=== PATIENT | female | born 1990 | race Caucasian/White ===

== ENCOUNTER 2020-07-03 15:14 | Inpatient (IN) | payer BC ==
[~2020-07-03] VITALS: Ht 162.6 cm; Wt 102.7 kg
[2020-07-03] MEDS ORDERED: MAGNESIUM SULF. PMX 20GM/500ML 500 ML IV ONE ×2 (16:05→23:16)
[2020-07-03] MEDS: LACTATED RINGERS 1,000 ML IV SCH (16:29)
[2020-07-03] MEDS ORDERED: PLEASE ENTER ALLERGIES MC SCH (16:30)
[2020-07-03] MEDS ORDERED: BETAMETHASONE 6 MG/ML, 5ML IM ONE (16:30)
[2020-07-03] MEDS ORDERED: MAGNESIUM SULF. PMX 20GM/500ML 500 ML IV SCH (16:30)
[2020-07-03] MEDS ORDERED: ACETAMINOPHEN 325 MG TABLET ONE ×2 (17:14→23:06)
[2020-07-03] MEDS: ACETAMINOPHEN 325 MG TABLET PO PRN ×2 (17:21→23:14)
[2020-07-03] MEDS ORDERED: FLUO20CA19 PO (18:25)
[2020-07-03 19:07] LABS: MICROSCOPIC INDICATED
[2020-07-03 19:40] LABS: BASOPHILS % (AUTO) 0 % (0-1); EOSINOPHILS % (AUTO) 0 % (1-7); LYMPHOCYTES % (AUTO) 9 % (22-44); MEAN CORPUSCULAR HEMOGLOBIN 30.7 pg (27.0-34.8); MEAN CORPUSCULAR HGB CONC 32.9 g/dL (32.4-35.8); MEAN PLATELET VOLUME 7.9 fL (7.4-10.4); MONOCYTES % (AUTO) 1 % (2-9); NEUTROPHILS % (AUTO) 90 % (42-75); PLATELET COUNT 324 x10^3/uL (130-400); RED BLOOD COUNT 3.68 x10^6/uL (3.82-5.3); RED CELL DISTRIBUTION WIDTH 13.6 % (9.6-15.2)
[2020-07-03 19:41] LABS: MD NO
[2020-07-03 19:53] LABS: ALANINE AMINOTRANSFERASE 15 U/L (12-78); ALBUMIN 2.7 g/dL (3.4-5.0); ANION GAP 10 mmol/L (5-15); CALCIUM 7.7 mg/dL (8.5-10.1); CHLORIDE 108 mmol/L (98-107); CREATININE 0.79 mg/dL (0.55-1.02)
[2020-07-03 19:55] LABS: ALKALINE PHOSPHATASE 70 U/L (45-117); BILIRUBIN,TOTAL 0.2 mg/dL (0.2-1.0); TOTAL PROTEIN 6.9 g/dL (6.4-8.2)
[2020-07-03] MEDS: MAGNESIUM SULF. PMX 20GM/500ML 500 ML IV SCH ×2 (20:35→23:21)
[2020-07-03 22:01] VITALS: BP 101/55
[2020-07-03] MEDS ORDERED: DOCUSATE 100 MG CAPSULE ONE (23:16)
[2020-07-03] MEDS: DOCUSATE 100 MG CAPSULE PO SCH (23:17)
[2020-07-03 23:30] VITALS: BP 99/53
[2020-07-04] MEDS ORDERED: ACETAMINOPHEN 325 MG TABLET ONE ×3 (05:08→19:17)
[2020-07-04] MEDS: ACETAMINOPHEN 325 MG TABLET PO PRN ×3 (05:12→19:22)
[2020-07-04] MEDS: LACTATED RINGERS 1,000 ML IV SCH ×2 (05:50→19:23)
[2020-07-04] MEDS ORDERED: MAGNESIUM SULF. PMX 20GM/500ML 500 ML IV ONE ×3 (06:00→21:13)
[2020-07-04] MEDS ORDERED: ONDANSETRON 2MG/ML, 2ML ONE ×3 (06:09→21:13)
[2020-07-04] MEDS: ONDANSETRON 2MG/ML, 2ML IVPush PRN ×3 (06:12→21:15)
[2020-07-04] MEDS: MAGNESIUM SULF. PMX 20GM/500ML 500 ML IV SCH ×2 (06:18→15:04)
[2020-07-04] MEDS ORDERED: PRENATAL VIT/IRON/FA 1 EACH TABLET ONE (08:31)
[2020-07-04] MEDS ORDERED: DOCUSATE 100 MG CAPSULE ONE ×2 (08:31→19:17)
[2020-07-04] MEDS: PRENATAL VIT/IRON/FA 1 EACH TABLET PO SCH (09:00)
[2020-07-04] MEDS: FLUOXETINE HCL 20 MG CAPSULE PO SCH (09:00)
[2020-07-04] MEDS: DOCUSATE 100 MG CAPSULE PO SCH ×2 (09:09→19:22)
[2020-07-04] MEDS ORDERED: BETAMETHASONE 6 MG/ML, 5ML IM ONE ×2 (13:31→14:00)
[2020-07-04 19:32] VITALS: BP 99/54
[2020-07-04] MEDS ORDERED: MAGNESIUM SULF. PMX 20GM/500ML 500 ML IV SCH (20:35)
[2020-07-05 00:05] VITALS: BP 97/54
[2020-07-05 07:30] VITALS: BP 96/53
[2020-07-05] MEDS ORDERED: ONDANSETRON 2MG/ML, 2ML ONE (08:15)
[2020-07-05] MEDS ORDERED: ACETAMINOPHEN 325 MG TABLET ONE ×2 (08:15→20:04)
[2020-07-05] MEDS: ONDANSETRON 2MG/ML, 2ML IVPush PRN (08:18)
[2020-07-05] MEDS: ACETAMINOPHEN 325 MG TABLET PO PRN ×2 (08:18→20:11)
[2020-07-05] MEDS ORDERED: DOCUSATE 100 MG CAPSULE ONE ×2 (09:18→20:06)
[2020-07-05] MEDS ORDERED: PRENATAL VIT/IRON/FA 1 EACH TABLET ONE (09:18)
[2020-07-05] MEDS: LACTATED RINGERS 1,000 ML IV SCH (09:20)
[2020-07-05] MEDS: FLUOXETINE HCL 20 MG CAPSULE PO SCH (10:51)
[2020-07-05] MEDS: PRENATAL VIT/IRON/FA 1 EACH TABLET PO SCH (10:51)
[2020-07-05] MEDS: DOCUSATE 100 MG CAPSULE PO SCH ×2 (10:51→20:10)
[2020-07-06] MEDS ORDERED: PRENATAL VIT/IRON/FA 1 EACH TABLET ONE (07:39)
[2020-07-06] MEDS ORDERED: ACETAMINOPHEN 325 MG TABLET ONE ×2 (07:39→12:09)
[2020-07-06] MEDS ORDERED: DOCUSATE 100 MG CAPSULE ONE (07:39)
[2020-07-06] MEDS: FLUOXETINE HCL 20 MG CAPSULE PO SCH (07:43)
[2020-07-06] MEDS: ACETAMINOPHEN 325 MG TABLET PO PRN ×2 (07:43→13:18)
[2020-07-06] MEDS: DOCUSATE 100 MG CAPSULE PO SCH (07:43)
[2020-07-06] MEDS: PRENATAL VIT/IRON/FA 1 EACH TABLET PO SCH (07:43)
[2020-07-06 08:13] VITALS: BP 98/47
[2020-07-06] MEDS ORDERED: ACETAMINOPHEN 500 MG TABLET ONE (20:07)
[2020-07-06] MEDS ORDERED: ACETAMINOPHEN 500 MG TABLET PO ONE (20:30)
[2020-07-07] MEDS ORDERED: ACETAMINOPHEN 500 MG TABLET PO ONE (06:30)
[2020-07-07] MEDS ORDERED: ACETAMINOPHEN 500 MG TABLET ONE (06:32)
[2020-07-07] MEDS: FLUOXETINE HCL 20 MG CAPSULE PO SCH (08:16)
[2020-07-07] MEDS: PRENATAL VIT/IRON/FA 1 EACH TABLET PO SCH (08:16)
[2020-07-07] MEDS ORDERED: PRENATAL VIT/IRON/FA 1 EACH TABLET ONE (08:20)
== END 2020-07-07 12:40 | disposition home or self-care (01) | DRG 832 ==
LOC: LDIP 15:48
PROVIDERS: ADMIT Obstetrics & Gynecology Maternal & Fetal Medicine; ATTEND Obstetrics & Gynecology Maternal & Fetal Medicine
DX: O35.8XX0 Maternal care for other (suspected) fetal abnormality and damage, not applicable or unspecified (principal); O44.02 Complete placenta previa NOS or without hemorrhage, second trimester; Q21.0 Ventricular septal defect; Z20.828 Contact with and (suspected) exposure to other viral communicable diseases; Z3A.25 25 weeks gestation of pregnancy; Z88.8 Allergy status to other drugs, medicaments and biological substances; Z88.1 Allergy status to other antibiotic agents; Z91.041 Radiographic dye allergy status
CPT/HCPCS: 36415; 80053; 81001; 83735; 85025; 85384; 86850; 86900; 87635; G0378; J0702; J2405; J3475; J7120

== ENCOUNTER 2020-07-22 17:03 | Inpatient (IN) | payer BC ==
[~2020-07-22] VITALS: Ht 162.6 cm; Wt 104.0 kg
[~2020-07-22 17:03] MED LIST: FLUO20CA19 PO
[2020-07-22] MEDS ORDERED: MAGNESIUM SULF. PMX 20GM/500ML 500 ML IV ONE (17:22)
[2020-07-22] MEDS ORDERED: PREN1TAB60 PO (17:41)
[2020-07-22] MEDS: LACTATED RINGERS 1,000 ML IV SCH (17:47)
[2020-07-22] MEDS: MAGNESIUM SULF. PMX 20GM/500ML 500 ML IV SCH (17:48)
[2020-07-22 17:50] VITALS: BP 109/58
[2020-07-22 18:27] LABS: BASOPHILS % (AUTO) 0 % (0-1); EOSINOPHILS % (AUTO) 1 % (1-7); LYMPHOCYTES % (AUTO) 24 % (22-44); MEAN CORPUSCULAR HEMOGLOBIN 31.3 pg (27.0-34.8); MEAN CORPUSCULAR HGB CONC 33.7 g/dL (32.4-35.8); MONOCYTES % (AUTO) 6 % (2-9); NEUTROPHILS % (AUTO) 69 % (42-75); PLATELET COUNT 306 x10^3/uL (130-400); RED BLOOD COUNT 3.69 x10^6/uL (3.82-5.3); RED CELL DISTRIBUTION WIDTH 13.7 % (9.6-15.2)
[2020-07-22 18:39] LABS: MD NO
[2020-07-22 18:42] LABS: ALBUMIN 2.5 g/dL (3.4-5.0); ANION GAP 8 mmol/L (5-15); CALCIUM 8.1 mg/dL (8.5-10.1); CHLORIDE 108 mmol/L (98-107)
[2020-07-22 18:45] LABS: ALANINE AMINOTRANSFERASE 16 U/L (12-78); ALKALINE PHOSPHATASE 68 U/L (45-117); BILIRUBIN,TOTAL 0.2 mg/dL (0.2-1.0); CREATININE 0.48 mg/dL (0.55-1.02); TOTAL PROTEIN 6.3 g/dL (6.4-8.2)
[2020-07-22] MEDS ORDERED: ACETAMINOPHEN 325 MG TABLET ONE (19:20)
[2020-07-22] MEDS ORDERED: DOCUSATE 100 MG CAPSULE ONE (19:21)
[2020-07-22] MEDS: ACETAMINOPHEN 325 MG TABLET PO PRN (19:26)
[2020-07-22] MEDS: DOCUSATE 100 MG CAPSULE PO PRN (19:27)
[2020-07-22 19:33] VITALS: BP 102/51
[2020-07-23] MEDS ORDERED: MAGNESIUM SULF. PMX 20GM/500ML 500 ML IV ONE (01:30)
[2020-07-23] MEDS: MAGNESIUM SULF. PMX 20GM/500ML 500 ML IV SCH (02:34)
[2020-07-23] MEDS: LACTATED RINGERS 1,000 ML IV SCH ×2 (02:35→08:09)
[2020-07-23] MEDS: ACETAMINOPHEN 325 MG TABLET PO PRN ×3 (05:26→18:01)
[2020-07-23] MEDS ORDERED: ONDANSETRON 2MG/ML, 2ML ONE (06:37)
[2020-07-23] MEDS ORDERED: ONDANSETRON 2MG/ML, 2ML IVPush PRN (06:40)
[2020-07-23 07:16] LABS: BASOPHILS % (AUTO) 1 % (0-1); EOSINOPHILS % (AUTO) 1 % (1-7); LYMPHOCYTES % (AUTO) 21 % (22-44); MEAN CORPUSCULAR HEMOGLOBIN 31.3 pg (27.0-34.8); MEAN CORPUSCULAR HGB CONC 33.6 g/dL (32.4-35.8); MEAN PLATELET VOLUME 7.7 fL (7.4-10.4); MONOCYTES % (AUTO) 7 % (2-9); NEUTROPHILS % (AUTO) 71 % (42-75); PLATELET COUNT 289 x10^3/uL (130-400); RED BLOOD COUNT 3.65 x10^6/uL (3.82-5.3); RED CELL DISTRIBUTION WIDTH 13.6 % (9.6-15.2)
[2020-07-23 07:21] LABS: MD NO
[2020-07-23] MEDS: FLUOXETINE HCL 20 MG CAPSULE PO SCH ×2 (07:55→09:00)
[2020-07-23 08:00] VITALS: BP 107/53
[2020-07-23] MEDS: PRENATAL VIT/IRON/FA 1 EACH TABLET PO SCH (09:00)
[2020-07-23] MEDS ORDERED: METOCLOPRAMIDE 5 MG/ML, 2ML IVPush STA (09:51)
[2020-07-23] MEDS ORDERED: METOCLOPRAMIDE 5 MG/ML, 2ML ONE (09:58)
[2020-07-23] MEDS ORDERED: ACETAMINOPHEN 325 MG TABLET ONE ×2 (12:37→18:00)
[2020-07-23 19:05] VITALS: BP 101/53
[2020-07-23] MEDS: SODIUM CHLORIDE FLUSH 3ML SYRINGE IVF SCH (20:22)
[2020-07-23] MEDS ORDERED: BUTALB/APAP/CAFFEINE 50MG/325MG/40MG PO ONE (21:00)
[2020-07-23 22:22] VITALS: BP 100/50
[2020-07-24] VITALS: BP 105/51
[2020-07-24] MEDS ORDERED: BUTALB/APAP/CAFFEINE 50MG/325MG/40MG PO ONE (03:00)
[2020-07-24 06:00] VITALS: BP 96/50
[2020-07-24 08:07] VITALS: BP 104/53
[2020-07-24] MEDS ORDERED: DOCUSATE 100 MG CAPSULE ONE (08:44)
[2020-07-24] MEDS ORDERED: PRENATAL VIT/IRON/FA 1 EACH TABLET ONE (08:44)
[2020-07-24] MEDS: SODIUM CHLORIDE FLUSH 3ML SYRINGE IVF SCH ×2 (09:00→20:55)
[2020-07-24] MEDS: DOCUSATE 100 MG CAPSULE PO PRN (09:02)
[2020-07-24] MEDS: FLUOXETINE HCL 20 MG CAPSULE PO SCH (09:02)
[2020-07-24] MEDS: PRENATAL VIT/IRON/FA 1 EACH TABLET PO SCH (09:02)
[2020-07-24 20:07] VITALS: BP 99/46
[2020-07-24] MEDS ORDERED: DIPHENHYDRAMINE 25 MG CAPSULE ONE (20:43)
[2020-07-24] MEDS: DIPHENHYDRAMINE 12.5MG/5ML, 10ML UDC PO PRN (20:55)
[2020-07-25] MEDS ORDERED: PRENATAL VIT/IRON/FA 1 EACH TABLET ONE (07:03)
[2020-07-25] MEDS ORDERED: DOCUSATE 100 MG CAPSULE ONE ×2 (07:03→20:54)
[2020-07-25] MEDS ORDERED: ACETAMINOPHEN 325 MG TABLET ONE ×2 (07:56→18:10)
[2020-07-25] MEDS: ACETAMINOPHEN 325 MG TABLET PO PRN ×2 (07:58→18:12)
[2020-07-25 08:50] VITALS: BP 114/53
[2020-07-25] MEDS: SODIUM CHLORIDE FLUSH 3ML SYRINGE IVF SCH (09:00)
[2020-07-25] MEDS: FLUOXETINE HCL 20 MG CAPSULE PO SCH (09:42)
[2020-07-25] MEDS: PRENATAL VIT/IRON/FA 1 EACH TABLET PO SCH (09:43)
[2020-07-25] MEDS ORDERED: DIPHENHYDRAMINE 25 MG CAPSULE ONE (20:54)
[2020-07-25] MEDS: DOCUSATE 100 MG CAPSULE PO PRN (20:58)
[2020-07-25] MEDS ORDERED: DIPHENHYDRAMINE 25 MG CAPSULE PO ONE (21:00)
[2020-07-26] MEDS ORDERED: PRENATAL VIT/IRON/FA 1 EACH TABLET ONE (08:05)
[2020-07-26] MEDS: PRENATAL VIT/IRON/FA 1 EACH TABLET PO SCH (08:15)
[2020-07-26] MEDS: FLUOXETINE HCL 20 MG CAPSULE PO SCH (08:15)
[2020-07-26] MEDS: SODIUM CHLORIDE FLUSH 3ML SYRINGE IVF SCH ×3 (08:20→21:00)
[2020-07-26 10:00] VITALS: BP 114/56
[2020-07-26] MEDS ORDERED: DIPHENHYDRAMINE 25 MG CAPSULE ONE (21:22)
[2020-07-27] MEDS ORDERED: DOCUSATE 100 MG CAPSULE ONE (08:56)
[2020-07-27] MEDS ORDERED: PRENATAL VIT/IRON/FA 1 EACH TABLET ONE (08:56)
[2020-07-27] MEDS: FLUOXETINE HCL 20 MG CAPSULE PO SCH (13:31)
[2020-07-27] MEDS: PRENATAL VIT/IRON/FA 1 EACH TABLET PO SCH (13:31)
[2020-07-27] MEDS ORDERED: ACETAMINOPHEN 500 MG TABLET ONE (15:58)
[2020-07-27] MEDS: ACETAMINOPHEN 325 MG TABLET PO PRN ×2 (16:01→19:57)
[2020-07-27] MEDS ORDERED: ACETAMINOPHEN 325 MG TABLET ONE ×2 (16:01→19:54)
[2020-07-27] MEDS ORDERED: ONDANSETRON ODT 4 MG ONE (20:12)
[2020-07-27] MEDS: ONDANSETRON ODT 4 MG PO PRN (20:13)
[2020-07-28] MEDS: BUTALB/APAP/CAFFEINE 50MG/325MG/40MG PO PRN (04:59)
[2020-07-28 07:37] VITALS: BP 102/51
[2020-07-28] MEDS ORDERED: PRENATAL VIT/IRON/FA 1 EACH TABLET ONE (10:12)
[2020-07-28] MEDS: FLUOXETINE HCL 20 MG CAPSULE PO SCH (10:14)
[2020-07-28] MEDS: PRENATAL VIT/IRON/FA 1 EACH TABLET PO SCH (10:14)
[2020-07-28] MEDS: DOCUSATE 100 MG CAPSULE PO PRN (21:00)
[2020-07-28] MEDS ORDERED: DIPHENHYDRAMINE 25 MG CAPSULE ONE (21:26)
[2020-07-28] MEDS: DIPHENHYDRAMINE 12.5MG/5ML, 10ML UDC PO PRN (21:28)
[2020-07-29] MEDS ORDERED: PRENATAL VIT/IRON/FA 1 EACH TABLET ONE (08:34)
[2020-07-29] MEDS: PRENATAL VIT/IRON/FA 1 EACH TABLET PO SCH (08:36)
[2020-07-29] MEDS: FLUOXETINE HCL 20 MG CAPSULE PO SCH (08:36)
[2020-07-29 20:09] VITALS: BP 109/59
[2020-07-30] MEDS ORDERED: PRENATAL VIT/IRON/FA 1 EACH TABLET ONE (08:35)
[2020-07-30] MEDS: PRENATAL VIT/IRON/FA 1 EACH TABLET PO SCH (08:36)
[2020-07-30] MEDS: FLUOXETINE HCL 20 MG CAPSULE PO SCH (08:36)
[2020-07-30] MEDS ORDERED: ACETAMINOPHEN 325 MG TABLET ONE (16:28)
[2020-07-30] MEDS: ACETAMINOPHEN 325 MG TABLET PO PRN (16:29)
[2020-07-30 19:17] VITALS: BP 98/62
[2020-07-30] MEDS ORDERED: DIPHENHYDRAMINE 25 MG CAPSULE ONE (20:49)
[2020-07-30] MEDS: DIPHENHYDRAMINE 25 MG CAPSULE PO PRN (20:56)
[2020-07-31] MEDS ORDERED: PRENATAL VIT/IRON/FA 1 EACH TABLET ONE (09:33)
[2020-07-31] MEDS: FLUOXETINE HCL 20 MG CAPSULE PO SCH (09:34)
[2020-07-31] MEDS: PRENATAL VIT/IRON/FA 1 EACH TABLET PO SCH (09:34)
[2020-07-31] MEDS: DOCUSATE 100 MG CAPSULE PO PRN (09:39)
[2020-07-31] MEDS ORDERED: DOCUSATE 100 MG CAPSULE ONE (09:39)
[2020-07-31] MEDS ORDERED: ACETAMINOPHEN 325 MG TABLET ONE (20:45)
[2020-07-31] MEDS ORDERED: DIPHENHYDRAMINE 25 MG CAPSULE ONE (20:45)
[2020-07-31] MEDS: DIPHENHYDRAMINE 25 MG CAPSULE PO PRN (20:46)
[2020-07-31] MEDS: ACETAMINOPHEN 325 MG TABLET PO PRN (20:46)
[2020-07-31 20:48] VITALS: BP 115/53
[2020-08-01] MEDS ORDERED: ONDANSETRON ODT 4 MG ONE (06:07)
[2020-08-01] MEDS: ONDANSETRON ODT 4 MG PO PRN (06:08)
[2020-08-01] MEDS ORDERED: ONDANSETRON 4 MG TABLET PO PRN (06:30)
[2020-08-01] MEDS ORDERED: PRENATAL VIT/IRON/FA 1 EACH TABLET ONE (07:52)
[2020-08-01] MEDS: FLUOXETINE HCL 20 MG CAPSULE PO SCH (09:00)
[2020-08-01] MEDS: PRENATAL VIT/IRON/FA 1 EACH TABLET PO SCH (09:00)
[2020-08-01] MEDS ORDERED: ACETAMINOPHEN 325 MG TABLET ONE ×2 (09:33→19:47)
[2020-08-01] MEDS ORDERED: ONDANSETRON 2MG/ML, 2ML ONE (09:33)
[2020-08-01] MEDS: D5%-LACTATED RINGERS 1,000 ML IV SCH ×2 (09:41→16:22)
[2020-08-01 09:52] LABS: CLUE CELLS NONE SEEN (NONE SEEN); WET PREP WBCS FEW (FEW)
[2020-08-01] MEDS: ACETAMINOPHEN 325 MG TABLET PO PRN ×2 (10:12→19:51)
[2020-08-01 19:15] VITALS: BP 111/53
[2020-08-01] MEDS ORDERED: DIPHENHYDRAMINE 25 MG CAPSULE ONE (20:53)
[2020-08-01] MEDS: DIPHENHYDRAMINE 25 MG CAPSULE PO PRN (20:54)
[2020-08-02] MEDS ORDERED: ACETAMINOPHEN 325 MG TABLET ONE ×2 (08:12→12:20)
[2020-08-02] MEDS: FLUOXETINE HCL 20 MG CAPSULE PO SCH (08:15)
[2020-08-02] MEDS: DOCUSATE 100 MG CAPSULE PO PRN (08:15)
[2020-08-02] MEDS: PRENATAL VIT/IRON/FA 1 EACH TABLET PO SCH (08:15)
[2020-08-02] MEDS: ACETAMINOPHEN 325 MG TABLET PO PRN ×3 (08:16→12:23)
[2020-08-02] MEDS ORDERED: SODIUM CHLORIDE NASAL SPRAY 45ML BOTTLE NAS PRN (10:30)
[2020-08-02] MEDS ORDERED: BUTALB/APAP/CAFFEINE 50MG/325MG/40MG ONE (12:20)
[2020-08-02] MEDS: BUTALB/APAP/CAFFEINE 50MG/325MG/40MG PO PRN (12:22)
[2020-08-02] MEDS ORDERED: SODIUM CHLORIDE FLUSH 10ML SYR IVF SCH (21:00)
[2020-08-02 21:04] VITALS: BP 109/56
[2020-08-02] MEDS ORDERED: DIPHENHYDRAMINE 25 MG CAPSULE ONE (21:06)
[2020-08-02] MEDS: DIPHENHYDRAMINE 25 MG CAPSULE PO PRN (21:09)
[2020-08-03] MEDS: FLUOXETINE HCL 20 MG CAPSULE PO SCH (08:00)
[2020-08-03] MEDS ORDERED: PRENATAL VIT/IRON/FA 1 EACH TABLET ONE (09:16)
[2020-08-03] MEDS ORDERED: DOCUSATE 100 MG CAPSULE ONE ×2 (09:17→19:30)
[2020-08-03] MEDS: PRENATAL VIT/IRON/FA 1 EACH TABLET PO SCH (09:18)
[2020-08-03] MEDS: DOCUSATE 100 MG CAPSULE PO PRN (09:18)
[2020-08-03] MEDS ORDERED: DIPHENHYDRAMINE 25 MG CAPSULE ONE (19:58)
[2020-08-03] MEDS: DIPHENHYDRAMINE 25 MG CAPSULE PO PRN (20:42)
[2020-08-04] MEDS ORDERED: PRENATAL VIT/IRON/FA 1 EACH TABLET ONE (07:29)
[2020-08-04] MEDS ORDERED: DOCUSATE 100 MG CAPSULE ONE (07:29)
[2020-08-04] MEDS: FLUOXETINE HCL 20 MG CAPSULE PO SCH (08:56)
[2020-08-04] MEDS: PRENATAL VIT/IRON/FA 1 EACH TABLET PO SCH (08:56)
[2020-08-04] MEDS ORDERED: ACETAMINOPHEN 325 MG TABLET ONE (17:40)
[2020-08-04] MEDS: ACETAMINOPHEN 325 MG TABLET PO PRN (17:41)
[2020-08-05 05:56] LABS: BASOPHILS % (AUTO) 0 % (0-1); EOSINOPHILS % (AUTO) 1 % (1-7); LYMPHOCYTES % (AUTO) 27 % (22-44); MEAN CORPUSCULAR HGB CONC 33.4 g/dL (32.4-35.8); MEAN PLATELET VOLUME 8.1 fL (7.4-10.4); MONOCYTES % (AUTO) 7 % (2-9); NEUTROPHILS % (AUTO) 65 % (42-75); PLATELET COUNT 301 x10^3/uL (130-400); RED BLOOD COUNT 3.74 x10^6/uL (3.82-5.3); RED CELL DISTRIBUTION WIDTH 13.6 % (9.6-15.2)
[2020-08-05 06:07] LABS: MD NO
[2020-08-05] MEDS ORDERED: PRENATAL VIT/IRON/FA 1 EACH TABLET ONE (08:54)
[2020-08-05] MEDS: PRENATAL VIT/IRON/FA 1 EACH TABLET PO SCH (08:56)
[2020-08-05] MEDS: FLUOXETINE HCL 20 MG CAPSULE PO SCH (08:56)
[2020-08-05 09:29] LABS: MICROSCOPIC NOT IND
[2020-08-05] MEDS ORDERED: ONDANSETRON ODT 4 MG ONE (12:50)
[2020-08-05] MEDS: ONDANSETRON ODT 4 MG PO PRN (12:51)
[2020-08-05] MEDS ORDERED: ACETAMINOPHEN 325 MG TABLET ONE (20:08)
[2020-08-05] MEDS: ACETAMINOPHEN 325 MG TABLET PO PRN (20:10)
[2020-08-05] MEDS ORDERED: DIPHENHYDRAMINE 25 MG CAPSULE ONE (20:35)
[2020-08-05] MEDS: DIPHENHYDRAMINE 25 MG CAPSULE PO PRN (20:37)
[2020-08-06] MEDS ORDERED: PRENATAL VIT/IRON/FA 1 EACH TABLET ONE (08:39)
[2020-08-06] MEDS ORDERED: BUTALB/APAP/CAFFEINE 50MG/325MG/40MG ONE (08:39)
[2020-08-06] MEDS: PRENATAL VIT/IRON/FA 1 EACH TABLET PO SCH (08:44)
[2020-08-06] MEDS: BUTALB/APAP/CAFFEINE 50MG/325MG/40MG PO PRN (08:44)
[2020-08-06 09:10] VITALS: BP 122/58
[2020-08-06] MEDS ORDERED: FLUOXETINE HCL 20 MG CAPSULE ONE (12:08)
[2020-08-06] MEDS: FLUOXETINE HCL 20 MG CAPSULE PO SCH (12:09)
[2020-08-06] MEDS ORDERED: ACETAMINOPHEN 325 MG TABLET ONE ×2 (12:52→18:31)
[2020-08-06] MEDS: ACETAMINOPHEN 325 MG TABLET PO PRN ×2 (12:54→18:32)
[2020-08-06 12:55] VITALS: BP 96/52
[2020-08-06 18:00] VITALS: BP 110/61
[2020-08-06] MEDS ORDERED: DIPHENHYDRAMINE 25 MG CAPSULE ONE (20:39)
[2020-08-06] MEDS: DIPHENHYDRAMINE 25 MG CAPSULE PO PRN (20:50)
[2020-08-07] MEDS ORDERED: ACETAMINOPHEN 325 MG TABLET ONE (05:49)
[2020-08-07] MEDS: ACETAMINOPHEN 325 MG TABLET PO PRN (05:51)
[2020-08-07] MEDS ORDERED: FLUOXETINE HCL 20 MG CAPSULE ONE (08:12)
[2020-08-07] MEDS ORDERED: PRENATAL VIT/IRON/FA 1 EACH TABLET ONE (08:12)
[2020-08-07] MEDS: PRENATAL VIT/IRON/FA 1 EACH TABLET PO SCH (08:14)
[2020-08-07] MEDS: FLUOXETINE HCL 20 MG CAPSULE PO SCH (08:14)
[2020-08-07] MEDS ORDERED: DOCUSATE 100 MG CAPSULE ONE (08:15)
[2020-08-07] MEDS: DOCUSATE 100 MG CAPSULE PO PRN (08:16)
[2020-08-07] MEDS ORDERED: DIPHENHYDRAMINE 25 MG CAPSULE ONE (21:19)
[2020-08-07] MEDS: DIPHENHYDRAMINE 25 MG CAPSULE PO PRN (21:21)
[2020-08-08 07:56] VITALS: BP 110/59
[2020-08-08] MEDS: PRENATAL VIT/IRON/FA 1 EACH TABLET PO SCH (09:00)
[2020-08-08] MEDS ORDERED: PRENATAL VIT/IRON/FA 1 EACH TABLET ONE (09:59)
[2020-08-08] MEDS ORDERED: DOCUSATE 100 MG CAPSULE ONE (10:00)
[2020-08-08] MEDS: DOCUSATE 100 MG CAPSULE PO PRN (10:03)
[2020-08-08] MEDS ORDERED: ACETAMINOPHEN 325 MG TABLET ONE ×2 (10:04→18:13)
[2020-08-08] MEDS: ACETAMINOPHEN 325 MG TABLET PO PRN ×2 (10:06→18:15)
[2020-08-08] MEDS ORDERED: FLUOXETINE HCL 20 MG CAPSULE ONE (10:16)
[2020-08-08] MEDS: FLUOXETINE HCL 20 MG CAPSULE PO SCH (10:17)
[2020-08-08] MEDS ORDERED: ONDANSETRON ODT 4 MG ONE (18:22)
[2020-08-08] MEDS: ONDANSETRON ODT 4 MG PO PRN (18:23)
[2020-08-08 19:40] VITALS: BP 92/45
[2020-08-08] MEDS ORDERED: DIPHENHYDRAMINE 25 MG CAPSULE ONE ×2 (22:29→22:30)
[2020-08-08] MEDS: DIPHENHYDRAMINE 25 MG CAPSULE PO PRN (22:32)
[2020-08-09] MEDS: PRENATAL VIT/IRON/FA 1 EACH TABLET PO SCH (09:00)
[2020-08-09] MEDS ORDERED: DOCUSATE 100 MG CAPSULE ONE ×2 (10:11→21:04)
[2020-08-09] MEDS ORDERED: FLUOXETINE HCL 20 MG CAPSULE ONE (10:12)
[2020-08-09] MEDS: FLUOXETINE HCL 20 MG CAPSULE PO SCH (10:13)
[2020-08-09] MEDS: DOCUSATE 100 MG CAPSULE PO PRN ×2 (10:13→21:07)
[2020-08-09] MEDS ORDERED: ACETAMINOPHEN 325 MG TABLET ONE ×2 (18:31→22:52)
[2020-08-09] MEDS: ACETAMINOPHEN 325 MG TABLET PO PRN ×2 (18:33→22:54)
[2020-08-09 20:13] VITALS: BP 104/52
[2020-08-09] MEDS ORDERED: DIPHENHYDRAMINE 25 MG CAPSULE ONE (21:04)
[2020-08-09] MEDS: DIPHENHYDRAMINE 25 MG CAPSULE PO PRN (21:07)
[2020-08-09 23:01] LABS: MICROSCOPIC NOT IND
[2020-08-10] MEDS ORDERED: ACETAMINOPHEN 325 MG TABLET ONE ×2 (06:07→21:09)
[2020-08-10] MEDS: ACETAMINOPHEN 325 MG TABLET PO PRN ×2 (06:09→21:16)
[2020-08-10] MEDS ORDERED: DOCUSATE 100 MG CAPSULE ONE (07:44)
[2020-08-10] MEDS ORDERED: FLUOXETINE HCL 20 MG CAPSULE ONE (07:44)
[2020-08-10 08:15] VITALS: BP 106/54
[2020-08-10] MEDS: DOCUSATE 100 MG CAPSULE PO PRN (08:26)
[2020-08-10] MEDS: FLUOXETINE HCL 20 MG CAPSULE PO SCH (08:26)
[2020-08-10 12:20] VITALS: BP 108/52
[2020-08-10] MEDS ORDERED: DIPHENHYDRAMINE 25 MG CAPSULE ONE (21:13)
[2020-08-10] MEDS: DIPHENHYDRAMINE 25 MG CAPSULE PO PRN (21:16)
[2020-08-11] MEDS ORDERED: ACETAMINOPHEN 325 MG TABLET ONE ×2 (05:28→22:29)
[2020-08-11] MEDS: ACETAMINOPHEN 325 MG TABLET PO PRN ×2 (05:29→22:30)
[2020-08-11] MEDS ORDERED: FLUOXETINE HCL 20 MG CAPSULE ONE (09:18)
[2020-08-11] MEDS ORDERED: DOCUSATE 100 MG CAPSULE ONE (09:18)
[2020-08-11] MEDS: FLUOXETINE HCL 20 MG CAPSULE PO SCH (09:38)
[2020-08-11] MEDS: DOCUSATE 100 MG CAPSULE PO PRN (09:38)
[2020-08-11 10:00] VITALS: BP 103/57
[2020-08-11 12:31] VITALS: BP 102/53
[2020-08-11 16:24] VITALS: BP 100/55
[2020-08-11] MEDS ORDERED: DIPHENHYDRAMINE 25 MG CAPSULE ONE (22:29)
[2020-08-11] MEDS: DIPHENHYDRAMINE 25 MG CAPSULE PO PRN (22:31)
[2020-08-12] MEDS ORDERED: PRENATAL VIT/IRON/FA 1 EACH TABLET ONE (08:31)
[2020-08-12] MEDS: PRENATAL VIT/IRON/FA 1 EACH TABLET PO SCH (08:34)
[2020-08-12] MEDS: FLUOXETINE HCL 20 MG CAPSULE PO SCH (08:34)
[2020-08-12] MEDS ORDERED: DOCUSATE 100 MG CAPSULE ONE (08:44)
[2020-08-12] MEDS: DOCUSATE 100 MG CAPSULE PO PRN (08:46)
[2020-08-12] MEDS ORDERED: ACETAMINOPHEN 325 MG TABLET ONE (20:38)
[2020-08-12] MEDS ORDERED: DIPHENHYDRAMINE 25 MG CAPSULE ONE (20:38)
[2020-08-12] MEDS: ACETAMINOPHEN 325 MG TABLET PO PRN (20:39)
[2020-08-12] MEDS: DIPHENHYDRAMINE 25 MG CAPSULE PO PRN (20:40)
[2020-08-13] MEDS ORDERED: ACETAMINOPHEN 325 MG TABLET ONE ×2 (01:49→12:39)
[2020-08-13] MEDS: ACETAMINOPHEN 325 MG TABLET PO PRN ×2 (01:50→12:43)
[2020-08-13] MEDS ORDERED: ONDANSETRON ODT 4 MG ONE (07:56)
[2020-08-13 08:09] VITALS: BP 100/49
[2020-08-13] MEDS: ONDANSETRON ODT 4 MG PO PRN (08:25)
[2020-08-13] MEDS ORDERED: PRENATAL VIT/IRON/FA 1 EACH TABLET ONE (11:44)
[2020-08-13] MEDS ORDERED: DOCUSATE 100 MG CAPSULE ONE ×2 (11:44→20:11)
[2020-08-13] MEDS: PRENATAL VIT/IRON/FA 1 EACH TABLET PO SCH (11:46)
[2020-08-13] MEDS: DOCUSATE 100 MG CAPSULE PO PRN ×2 (11:46→20:42)
[2020-08-13] MEDS: FLUOXETINE HCL 20 MG CAPSULE PO SCH (14:38)
[2020-08-13] MEDS ORDERED: BUTALB/APAP/CAFFEINE 50MG/325MG/40MG ONE (18:07)
[2020-08-13] MEDS: BUTALB/APAP/CAFFEINE 50MG/325MG/40MG PO PRN (18:09)
[2020-08-13 20:30] VITALS: BP 106/55
[2020-08-13] MEDS ORDERED: DIPHENHYDRAMINE 25 MG CAPSULE ONE (20:36)
[2020-08-13] MEDS: DIPHENHYDRAMINE 25 MG CAPSULE PO PRN (20:42)
[2020-08-14] MEDS ORDERED: DOCUSATE 100 MG CAPSULE ONE (07:22)
[2020-08-14] MEDS ORDERED: PRENATAL VIT/IRON/FA 1 EACH TABLET ONE (07:22)
[2020-08-14] MEDS: PRENATAL VIT/IRON/FA 1 EACH TABLET PO SCH ×2 (08:22→09:00)
[2020-08-14] MEDS: DOCUSATE 100 MG CAPSULE PO PRN (08:22)
[2020-08-14] MEDS ORDERED: FLUOXETINE HCL 20 MG CAPSULE ONE (10:33)
[2020-08-14] MEDS: FLUOXETINE HCL 20 MG CAPSULE PO SCH (12:07)
[2020-08-14] MEDS ORDERED: ACETAMINOPHEN 325 MG TABLET ONE (17:17)
[2020-08-14] MEDS: ACETAMINOPHEN 325 MG TABLET PO PRN (17:18)
[2020-08-14] MEDS ORDERED: CALCIUM CARBONATE 500 MG TAB.CHEW ONE ×2 (18:08→20:04)
[2020-08-14] MEDS ORDERED: DIPHENHYDRAMINE 25 MG CAPSULE ONE (20:05)
[2020-08-14] MEDS: DIPHENHYDRAMINE 25 MG CAPSULE PO PRN (20:08)
[2020-08-14 20:58] VITALS: BP 102/52
[2020-08-15] MEDS ORDERED: DIPHENHYDRAMINE 25 MG CAPSULE ONE ×2 (04:18→22:13)
[2020-08-15] MEDS: DIPHENHYDRAMINE 25 MG CAPSULE PO PRN ×2 (04:22→22:14)
[2020-08-15] MEDS: SODIUM CHLORIDE FLUSH 10ML SYR IVF SCH ×3 (05:00→21:00)
[2020-08-15] MEDS: PRENATAL VIT/IRON/FA 1 EACH TABLET PO SCH ×2 (09:00→09:30)
[2020-08-15] MEDS ORDERED: PRENATAL VIT/IRON/FA 1 EACH TABLET ONE (09:27)
[2020-08-15] MEDS ORDERED: DOCUSATE 100 MG CAPSULE ONE (09:27)
[2020-08-15] MEDS ORDERED: FLUOXETINE HCL 20 MG CAPSULE ONE (09:27)
[2020-08-15] MEDS: DOCUSATE 100 MG CAPSULE PO PRN (09:30)
[2020-08-15] MEDS: FLUOXETINE HCL 20 MG CAPSULE PO SCH (09:30)
[2020-08-15 11:28] VITALS: BP 104/54
[2020-08-15] MEDS ORDERED: ACETAMINOPHEN 325 MG TABLET ONE ×2 (13:11→22:13)
[2020-08-15] MEDS: ACETAMINOPHEN 325 MG TABLET PO PRN ×2 (13:14→22:14)
[2020-08-16] MEDS ORDERED: PRENATAL VIT/IRON/FA 1 EACH TABLET ONE (08:32)
[2020-08-16] MEDS ORDERED: FLUOXETINE HCL 20 MG CAPSULE ONE (08:32)
[2020-08-16] MEDS: PRENATAL VIT/IRON/FA 1 EACH TABLET PO SCH (08:39)
[2020-08-16] MEDS: FLUOXETINE HCL 20 MG CAPSULE PO SCH (08:39)
[2020-08-16] MEDS ORDERED: ACETAMINOPHEN 325 MG TABLET ONE ×2 (15:12→19:17)
[2020-08-16] MEDS: ACETAMINOPHEN 325 MG TABLET PO PRN ×2 (15:13→19:19)
[2020-08-17] MEDS ORDERED: PRENATAL VIT/IRON/FA 1 EACH TABLET ONE (09:11)
[2020-08-17] MEDS ORDERED: FLUOXETINE HCL 20 MG CAPSULE ONE (09:11)
[2020-08-17] MEDS: PRENATAL VIT/IRON/FA 1 EACH TABLET PO SCH (09:17)
[2020-08-17] MEDS: FLUOXETINE HCL 20 MG CAPSULE PO SCH (09:17)
[2020-08-17] MEDS: DOCUSATE 100 MG CAPSULE PO PRN ×2 (09:18→21:08)
[2020-08-17] MEDS ORDERED: DOCUSATE 100 MG CAPSULE ONE ×2 (09:18→21:06)
[2020-08-17] MEDS ORDERED: ACETAMINOPHEN 325 MG TABLET ONE ×2 (11:01→17:08)
[2020-08-17] MEDS: ACETAMINOPHEN 325 MG TABLET PO PRN ×2 (11:03→17:08)
[2020-08-17] MEDS ORDERED: CALCIUM CARBONATE 500 MG TAB.CHEW ONE (19:13)
[2020-08-17] MEDS: CALCIUM CARBONATE 500 MG TAB.CHEW PO PRN (19:15)
[2020-08-17] MEDS ORDERED: DIPHENHYDRAMINE 25 MG CAPSULE ONE (21:06)
[2020-08-17] MEDS: DIPHENHYDRAMINE 25 MG CAPSULE PO PRN (21:08)
[2020-08-18] MEDS ORDERED: DOCUSATE 100 MG CAPSULE ONE (08:13)
[2020-08-18] MEDS ORDERED: FLUOXETINE HCL 20 MG CAPSULE ONE (08:13)
[2020-08-18] MEDS ORDERED: ACETAMINOPHEN 325 MG TABLET ONE ×2 (08:13→18:32)
[2020-08-18] MEDS: DOCUSATE 100 MG CAPSULE PO PRN (08:15)
[2020-08-18] MEDS: FLUOXETINE HCL 20 MG CAPSULE PO SCH (08:15)
[2020-08-18] MEDS: ACETAMINOPHEN 325 MG TABLET PO PRN ×2 (08:15→18:34)
[2020-08-18 12:30] VITALS: BP 111/55
[2020-08-18] MEDS ORDERED: ACYCLOVIR 400 MG TABLET ONE (19:42)
[2020-08-18] MEDS ORDERED: ACYCLOVIR 400 MG TABLET PO SCH (20:00)
[2020-08-18] MEDS ORDERED: DIPHENHYDRAMINE 25 MG CAPSULE ONE ×2 (21:03→21:05)
[2020-08-18] MEDS: DIPHENHYDRAMINE 25 MG CAPSULE PO PRN (21:04)
[2020-08-19] MEDS ORDERED: PRENATAL VIT/IRON/FA 1 EACH TABLET ONE (08:30)
[2020-08-19] MEDS ORDERED: FLUOXETINE HCL 20 MG CAPSULE ONE (08:30)
[2020-08-19] MEDS ORDERED: ACYCLOVIR 400 MG TABLET ONE ×3 (08:30→20:30)
[2020-08-19] MEDS ORDERED: ACETAMINOPHEN 325 MG TABLET ONE ×3 (08:45→21:50)
[2020-08-19] MEDS ORDERED: DOCUSATE 100 MG CAPSULE ONE ×2 (08:45→20:32)
[2020-08-19] MEDS: ACETAMINOPHEN 325 MG TABLET PO PRN ×3 (08:48→21:53)
[2020-08-19] MEDS: FLUOXETINE HCL 20 MG CAPSULE PO SCH (08:48)
[2020-08-19] MEDS: DOCUSATE 100 MG CAPSULE PO PRN ×2 (08:48→20:36)
[2020-08-19] MEDS: ACYCLOVIR 400 MG TABLET PO SCH ×3 (08:48→20:36)
[2020-08-19] MEDS: PRENATAL VIT/IRON/FA 1 EACH TABLET PO SCH ×2 (08:49→09:00)
[2020-08-19] MEDS ORDERED: DIPHENHYDRAMINE 25 MG CAPSULE ONE (20:29)
[2020-08-19] MEDS: DIPHENHYDRAMINE 25 MG CAPSULE PO PRN (20:35)
[2020-08-20] MEDS: ACETAMINOPHEN 325 MG TABLET PO PRN ×3 (03:45→23:42)
[2020-08-20] MEDS ORDERED: ACETAMINOPHEN 325 MG TABLET ONE ×3 (05:33→23:41)
[2020-08-20] MEDS ORDERED: PRENATAL VIT/IRON/FA 1 EACH TABLET ONE (07:17)
[2020-08-20] MEDS ORDERED: DOCUSATE 100 MG CAPSULE ONE ×2 (07:17→21:12)
[2020-08-20] MEDS ORDERED: FLUOXETINE HCL 20 MG CAPSULE ONE (07:18)
[2020-08-20] MEDS ORDERED: ACYCLOVIR 400 MG TABLET ONE ×3 (07:18→21:13)
[2020-08-20] MEDS: FLUOXETINE HCL 20 MG CAPSULE PO SCH (09:00)
[2020-08-20] MEDS: PRENATAL VIT/IRON/FA 1 EACH TABLET PO SCH (09:00)
[2020-08-20] MEDS: ACYCLOVIR 400 MG TABLET PO SCH ×3 (09:00→23:18)
[2020-08-20] MEDS: DOCUSATE 100 MG CAPSULE PO PRN ×2 (09:00→23:18)
[2020-08-20 09:31] VITALS: BP 107/58
[2020-08-20] MEDS ORDERED: DIPHENHYDRAMINE 25 MG CAPSULE ONE (21:13)
[2020-08-20 21:16] VITALS: BP 107/56
[2020-08-20] MEDS: DIPHENHYDRAMINE 25 MG CAPSULE PO PRN (23:18)
[2020-08-20] MEDS ORDERED: CALCIUM CARBONATE 500 MG TAB.CHEW ONE (23:26)
[2020-08-20] MEDS: CALCIUM CARBONATE 500 MG TAB.CHEW PO PRN (23:27)
[2020-08-21] MEDS ORDERED: ACYCLOVIR 400 MG TABLET ONE ×2 (07:45→13:32)
[2020-08-21] MEDS ORDERED: FLUOXETINE HCL 20 MG CAPSULE ONE (07:45)
[2020-08-21] MEDS ORDERED: PRENATAL VIT/IRON/FA 1 EACH TABLET ONE (07:45)
[2020-08-21] MEDS ORDERED: DOCUSATE 100 MG CAPSULE ONE (07:45)
[2020-08-21] MEDS: PRENATAL VIT/IRON/FA 1 EACH TABLET PO SCH (08:56)
[2020-08-21] MEDS: DOCUSATE 100 MG CAPSULE PO PRN (08:56)
[2020-08-21] MEDS: ACYCLOVIR 400 MG TABLET PO SCH ×2 (08:56→15:43)
[2020-08-21] MEDS: FLUOXETINE HCL 20 MG CAPSULE PO SCH (08:57)
[2020-08-21 09:14] VITALS: BP 108/59
[2020-08-21] MEDS ORDERED: ACETAMINOPHEN 325 MG TABLET ONE (12:28)
[2020-08-21] MEDS: ACETAMINOPHEN 325 MG TABLET PO PRN (12:29)
== END 2020-08-21 18:45 | disposition home or self-care (01) | DRG 831 ==
LOC: LDOP 17:03 → LDIP 17:37
PROVIDERS: ADMIT Obstetrics & Gynecology Maternal & Fetal Medicine; ATTEND Obstetrics & Gynecology Maternal & Fetal Medicine
DX: O35.8XX0 Maternal care for other (suspected) fetal abnormality and damage, not applicable or unspecified (principal); O44.53 Low lying placenta with hemorrhage, third trimester; N13.30 Unspecified hydronephrosis; O44.03 Complete placenta previa NOS or without hemorrhage, third trimester; Q21.0 Ventricular septal defect; Z20.828 Contact with and (suspected) exposure to other viral communicable diseases; O21.2 Late vomiting of pregnancy; F32.9 Major depressive disorder, single episode, unspecified; O99.342 Other mental disorders complicating pregnancy, second trimester; Z98.891 History of uterine scar from previous surgery; Z88.2 Allergy status to sulfonamides; Z79.899 Other long term (current) drug therapy; Z88.8 Allergy status to other drugs, medicaments and biological substances; Z88.5 Allergy status to narcotic agent; Z91.041 Radiographic dye allergy status; Z91.013 Allergy to seafood; Z88.1 Allergy status to other antibiotic agents
CPT/HCPCS: 36415; J7121; 76770; 76805; 80053; 81003; 82950; 82962; 83735; 85025; 86850; 86900; 87210; 87635; 87808; 89060; 93005; G0378; J2405; Q0162; J2765; J3475; J7120; Q0114; Q0163